=== PATIENT | male | born 1960 | race Caucasian/White ===

== ENCOUNTER 2017-06-21 04:25 | Emergency (ER) | payer OTHER ==
[2017-06-21 04:34] VITALS: RESP 16
--- NOTE | 2017-06-21 04:49 | EDPHY ---
H & P Stated Complaint: SX INCISION OPENED STITCHES REMOVED SATURDAY Time Seen by Provider: 06/21/17 04:30 HPI/ROS: HPI CHIEF COMPLAINT: Right facial wound bleeding HISTORY OF PRESENT ILLNESS: Patient is a very pleasant 56-year-old male, he has a history of melanoma of his recent mohs procedure on the right side of his face to removed melanoma. This was performed 9 days ago. He had his sutures removed 3 days ago. He worked out today and then this evening his wound opened up and started bleeding. He was unable to get the bleeding is stops her came to the emergency room for evaluation. Past Medical History: Melanoma Past Surgical History: Recent Mohs procedure Social History: Denies drugs alcohol tobacco products. Family History: Noncontributory Psychiatric Rn: Dr. Connie CHOI REVIEW OF SYSTEMS: A comprehensive 10 point review of systems is otherwise negative aside from elements mentioned in the history of present illness. Exam Constitutional appears well nontoxic no acute distress triage nursing summary reviewed, vital signs reviewed, awake/alert. Eyes normal conjunctivae and sclera, EOMI, PERRLA. HENT normal inspection, atraumatic, moist mucus membranes, no epistaxis, neck supple/ no meningismus, no raccoon eyes. Respiratory clear to auscultation bilaterally, normal breath sounds, no respiratory distress, no wheezing. Cardiovascular rate normal, regular rhythm, no murmur, no edema, distal pulses normal. Gastrointestinal soft, non-tender, no rebound, no guarding, normal bowel sounds, no distension, no pulsatile mass. Genitourinary no CVA tenderness. Musculoskeletal no midline vertebral tenderness, full range of motion, no calf swelling, no tenderness of extremities, no meningismus, good pulses, neurovascularly intact. Skin right face: Over the cheek on the right side there is a 2 cm gaping opening football looking wound. Underlying minimal hematoma. Venous oozing. No signs of infection. Neurologic awake, alert and oriented x 3, AAOx3, moves all 4 extremities equally, motor intact, sensory intact, CN II-XII intact, normal cerebellar, normal vision, normal speech. Psychiatric normal mood/affect. Heme/Lymph/Immune no lymphadenopathy. Differential Diagnosis: Includes but is not limited to in a particular order wound dehiscence, hematoma. Medical Decision Making: Plan for this patient will touch base with his celebrity chef entrepreneur media personality, and will most likely need to close his wound, clean his wound. Most likely will need to place sutures as he has a gaping wound, and then sutures removed in 7 days. Re-evaluation: 0509: Long discussion with the patient I offered him he repair here in emergency room additionally state that we can't bandage it he get a delayed closure with his celebrity chef entrepreneur media personality however he does not want to do that would like the wound closed. He understands there is risk for infection. He understands watch for signs of infection. Additionally I did give him the options for delayed closure to follow up with his celebrity chef entrepreneur media personality who performed surgery however he states given that he has a rather large wound that is open on the right side of his face gaping he would like it. He would like it repaired here in the emergency room. Additionally did try to consult his celebrity chef entrepreneur media personality however we made multiple attempts to make contact with him we left messages and nobody is called his back. Laceration Repair Procedure: Verbal Consent was obtained, Under sterile conditions, The patient had lidocaine with epinephrine used approximately 4ccs to local anesthetize the Right Cheek 2CM gaping facial Laceration. The wound was copiously irrigated with sterile fluid, the wound was explored for foreign bodies there were none visualized, the wound was explored with a sterile glove to the base. There are no deep structures involved, including no arterial injury. FOUR 6.O PROLENE interrupted Sutures were placed in this patient's laceration. He had good close approximation of the wound edges. He Tolerated this well. Patient understands have sutures removed in 7-10 days. No fevers activity. Watch for infection. Cool compresses. Return if any further questions or concerns he understands. Source: Patient - Personal History Current Tetanus Diphtheria and Acellular Pertussis (TDAP): Yes - Medical/Surgical History Hx Asthma: No Hx Chronic Respiratory Disease: No Hx Diabetes: No Hx Cardiac Disease: No Hx Renal Disease: No Hx Cirrhosis: No Hx Alcoholism: No Hx HIV/AIDS: No Hx Splenectomy or Spleen Trauma: No Other PMH: hernia, vasectomy, knee, ankle surgeries, MOLE REMOVED R SIDE OF FACE - Social History Smoking Status: Never smoked Constitutional: Initial Vital Signs Temperature (C) 36.6 C 06/21/17 04:30 Heart Rate 69 06/21/17 04:30 Respiratory Rate 16 06/21/17 04:30 Blood Pressure 147/88 H 06/21/17 04:30 O2 Sat (%) 95 06/21/17 04:30 O2 Delivery Mode Room Air Allergies/Adverse Reactions: CATS Allergy (Severe, Uncoded 11/30/13 21:11) TROUBLE BREATHING/ITCHY SKIN ENVIRONMENTAL Allergy (Mild, Uncoded 11/30/13 21:11) RUNNY NOSE/NASAL CONGESTION Home Medications: Medication Instructions Recorded Uroxatral 07/11/15 Aspirin 81mg (*) 06/21/17 Departure - Departure Disposition: Home, Routine, Self-Care Clinical Impression: Open facial wound Qualifiers: Encounter type: initial encounter Qualified Code(s): S01.80XA - Unspecified open wound of other part of head, initial encounter Condition: Good Instructions: Care For Your Stitches (ED), Laceration (ED) Additional Instructions: 1. Please follow up with your celebrity chef entrepreneur media personality. 2. Watch closely for infection this includes worsening swelling, redness, drainage, pus. 3. Ice her face over the next 48 hr. 4. Sutures to be removed in 7-10 and days. 5. No vigorous activity Referrals: Andrews Steward MD [Primary Care Provider] - As per Instructions
[2017-06-21 05:46] VITALS: BP 137/80; PULSE 76; TEMP 98.2; O2SAT 97
== END 2017-06-21 05:47 | disposition home or self-care (01) ==
PROC: 0HQ1XZZ Repair Face Skin, External Approach (ICD-10-PCS; principal; 2017-06-21)
DX: L76.22 Postprocedural hemorrhage of skin and subcutaneous tissue following other procedure (principal)

== ENCOUNTER → 2018-10-09 | Outpatient (CLI) | payer OTHER | LOC: BMCIMAGING 15:25 ==